=== PATIENT | female | born 1955 | race Caucasian/White ===

== ENCOUNTER → 2023-05-02 07:32 | Outpatient (REF) | payer OTHER, SELFPAY | LOC: EMG 07:32 | PROVIDERS: ATTENDING PHYSICIAN Student in an Organized Health Care Education/Training Program; FAMILY PHYSICIAN Family Medicine | DX: M79.671 Pain in right foot (principal); M25.571 Pain in right ankle and joints of right foot; R20.0 Anesthesia of skin | CPT/HCPCS: 95886; 95909 ==

== ENCOUNTER → 2023-05-19 11:11 | Outpatient (REF) | payer OTHER, SELFPAY | LOC: RAD 11:11 | PROVIDERS: ATTENDING PHYSICIAN Otolaryngology Facial Plastic Surgery; FAMILY PHYSICIAN Family Medicine | DX: J32.0 Chronic maxillary sinusitis (principal); J34.2 Deviated nasal septum; J30.1 Allergic rhinitis due to pollen | CPT/HCPCS: 70486 ==

== ENCOUNTER → 2023-07-23 11:56 | Outpatient (REF) | payer OTHER, SELFPAY ==
[2023-07-23 14:18] LABS: Urine Albumin Negative (Neg - Trace); Urine Bilirubin Negative (Negative); Urine Character Clear (Clear); Urine Color Yellow; Urine Glucose Negative (Negative); Urine Ketone Negative (Negative); Urine Leukocyte 1+ (Negative); Urine Nitrite Negative (Negative); Urine Occult Blood Negative (Negative); Urine Specific Gravity 1.015 (<1.030); Urine Urobilinogen Negative (Neg - 1+)
[2023-07-23 14:42] LABS: Urine Red Blood Cell 0-2 /HPF (0-2); Urine Squamous Cell 0-2 /LPF (Few)
== END ==
LOC: REG 11:56
PROVIDERS: ATTENDING PHYSICIAN Urology; FAMILY PHYSICIAN Family Medicine
DX: N39.0 Urinary tract infection, site not specified (principal)
CPT/HCPCS: 81003; 81015; 87077; 87086

== ENCOUNTER 2023-08-12 13:41 | Emergency (ER) | payer OTHER, SELFPAY ==
[2023-08-12 13:52] VITALS: BP 134/106
[2023-08-12 14:11] LABS: Hematocrit 38.4 % (37.0-47.0); Hemoglobin 12.8 g/dL (12.0-16.0); Mean Corp Hgb Conc. 33.3 g/dL (33.0-37.0); Mean Corpuscular Hgb 28.1 pg (27.0-31.0); Mean Corpuscular Volume 84.2 fL (81.0-99.0); Mean Platelet Volume 9.1 fL (7.4-10.4); Nucleated Red Blood Cells % 0 %; Platelet Count 236 10^3/uL (130-400); Red Blood Cell Count 4.56 10^6/uL (4.20-5.40); Red Cell Dist. Width 13.8 % (11.5-14.5); White Blood Cell Count 11.7 10^3/uL (4.8-10.8)
[2023-08-12 14:39] LABS: ALT (SGPT) 73 U/L (0-35); AST (SGOT) 71 U/L (14-36); Alkaline Phosphatase 84 U/L (38-126); Blood Urea Nitrogen 33 mg/dl (7-17); Calcium 9.5 mg/dl (8.4-10.2); Carbon Dioxide 21 mmol/L (22-30); Chloride 98 mmol/L (98-107); Glucose 154 mg/dl (70-99); Potassium 4.2 mmol/L (3.5-5.1); Sodium 132 mmol/L (135-145); Total Bilirubin 0.6 mg/dl (0.2-1.3); eGFR 45.07
[2023-08-12 14:48] LABS: Absolute Neutrophils -Man Diff 4.2 10^3/uL (1.4-6.5); Band Neutrophils 3 % (0-3); Lymphocytes 46 % (20-51); Segmented Neutrophils 33 % (42-75)
[2023-08-12 14:49] LABS: Atypical Lymphocytes 15 %; Eosinophils 1 % (0-6); Monocytes 2 % (2-9); Normal RBC Morphology Yes; Platelets Checked YES
[2023-08-12 14:50] LABS: Total Cells Counted 100
--- NOTE | 2023-08-12 16:04 | ED.GENMED ---
History of Present Illness
General
Chief Complaint: Urinary Symptoms
Source: patient
Exam Limitations: none
Time Seen by Provider: 08/12/23 16:03
Nursing documentation reviewed up to this point in time: agreed with
Travel History
Have you had any contact with someone who has COVID-19?: No
Do you have any symptoms of coronavirus? Fever > 100 degrees, chills, cough, shortness of breath, sore throat, loss of taste or smell, muscle aches, or headache?: No
History of Present Illness
History of Present Illness:
67 yo female with hx frequent UTIs, followed by Urology Dr. Kaufman, developed burning, frequency and dark urine 10 days ago, seen by 7 days ago and given Bactrim. At the time she had chills, fatigue, decreased appetite, and headache. Is on her
7th of 10 days on Bactrim DS BID. UTI symptoms improving, but still fatigued and didn't feel well so went back to yesterday and was told her Creatinine was 1.6 and recommended she come here for imaging of her kidneys. She also has felt 'not
really pain, more of a pressure' in her epigastric/chest area.
Denies n/v/d/c. Denies SOB.
Past History
Past History
ED Past Medical History: HTN, Hypercholesterolemia and Other
Review of Systems
Review of Systems
Allergies reviewed?: Yes
All Other Systems: ROS reviewed and negative except as documented in HPI and ROS
Constitutional: Reports fatigue and chills; Denies fever
Respiratory: Denies trouble breathing
Cardiac: Reports chest pain (chest heaviness intermittent past several days)
ABD/GI: Denies abdominal pain, nausea, vomiting or diarrhea
: Reports dark urine; Denies dysuria, flank pain, difficulty voiding or urgency
Musculoskeletal: Reports no symptoms
Skin: Reports no symptoms
Neurological: Reports no symptoms
Phy Exam
Physical Exam
Physical Exam:
GENERAL: No acute distress. A&Ox3.
CONSTITUTIONAL: Afebrile.
EYES: PERRL, conjunctivae normal
ENMT: moist mucus membranes, Pharynx nl
RESPIRATORY: Regular respirations, nonlabored, lungs clear.
CARDIOVASCULAR: Regular rate and rhythm, no murmurs, no rubs.
GI: Soft, nontender, normal BS
MUSCULOSKELETAL: Moves with ease. Well perfused. No edema
SKIN: Warm, dry, pink
PSYCH: Normal mood and affect. Well kept, interactive and appropriate
NEUROLOGIC: Awake, alert and oriented. No focal neurological deficits
Course
Orders/Labs/Results
Orders:
Orders
08/12/23 13:59
Electrocardiogram (*1) Urgent
Reason for Study: Chest Pain
08/12/23 14:04
Complete Blood Count/With Diff Urgent
Comprehensive Metabolic Panel Urgent
Manual Differential Urgent
08/12/23 16:03
Add On- LAB Urgent
Tests Added?: Troponin
0.9% Sodium Chloride 1000 ml [Nss] 1,000 ml IV BOLUS
08/12/23 16:17
Lisinopril [Zestril] 2.5 mg PO NOW STA
08/12/23 16:18
Hydrochlorothiazide [Oretic] 25 mg PO NOW STA
08/12/23 19:39
BMP [Basic Metabolic Panel] Urgent
Troponin I Urgent
Comment: COLLECT. NO GREEN TOP IN LAB
08/12/23 19:53
Urinalysis Reflex To Culture Urgent
Date Specimen was Collected: 08/12/23
Time Specimen was Collected: 18:43
Urine Microscopic Reflex Cult Urgent
Urine Culture Urgent
ANYA Source: U
Specimen Description:
Date Specimen was Collected: 08/12/23
Time Specimen was Collected: 18:43
Abnormal Lab Results
08/12/23 08/12/23 08/12/23
14:04 19:39 19:53
WBC 11.7 H 10^3/uL
(4.8-10.8)
Segmented Neutrophils 33 L %
(42-75)
Sodium 132 L mmol/L 131 L mmol/L
(135-145) (135-145)
Carbon Dioxide 21 L mmol/L
(22-30)
BUN 33 H mg/dl 33 H mg/dl
(7-17) (7-17)
Creatinine 1.3 H mg/dL 1.1 H mg/dL
(0.6-1.0) (0.6-1.0)
Glucose 154 H mg/dl 111 H mg/dl
(70-99) (70-99)
AST 71 H U/L
(14-36)
ALT 73 H U/L
(0-35)
Leukocyte Esterase Rfl 1+ A
(Negative)
08/12/23 14:04
08/12/23 19:39
Vital Signs
Initial and Last Documented VS:
Initial Vital Signs
Temp Pulse Resp BP Pulse Ox
98.3 F 138 20 134/106 99
08/12/23 13:52 08/12/23 13:52 08/12/23 13:52 08/12/23 13:52 08/12/23 13:52
Last Documented Vital Signs
Temp Pulse Resp BP Pulse Ox
98.3 F 69 20 108/74 97
08/12/23 13:52 08/12/23 20:41 08/12/23 13:52 08/12/23 20:41 08/12/23 20:41
MDM/Problems Addressed
Differential Diagnosis Includes:
Dehydration, UTI, acute kidney insufficiency
MDM/Problems Addressed:
67 yo female with hx frequent UTIs, followed by Urology Dr. Kaufman, developed burning, frequency and dark urine 10 days ago, seen by UC 7 days ago and given Bactrim. At the time she had chills, fatigue, decreased appetite, and headache. Is on her
7th of 10 days on Bactrim DS BID. UTI symptoms improving, but still fatigued and didn't feel well so went back to yesterday and was told her Creatinine was 1.6 and recommended she come here for imaging of her kidneys. She also has felt 'not
really pain, more of a pressure' in her epigastric/chest area.
Denies n/v/d/c. Denies SOB.
In triage EKG: sinus tach
Afebrile, NAD
BP 103/113, pt did not take her Lisinopril/HCTZ today, nor her Bactrim
BP rechecked by this examiner 102/68, initially ordered BP meds DC'd
4:20 p.m.
CBC: Mild leukocytosis at WBC 11.7, no clinically significant abnormality
CMP: BUN/creatinine 33/1.3, mild elevation of AST and ALT
Will rehydrate and recheck kidney fx.
Check Troponin for intermittent chest pressure
Recheck U/A since she states urine is still 'dark'
8:30 PM
After liter IV fluids, BUN and creatinine much improved 33/1.1.
Troponin within normal limits.
VSS
No indication at this time for imaging
Pt comfortable with plan. Given out pt slip for repeat CMP next week.
*Critical Care Note
Total Time (30-74mins, 75-104mins- exclusive of procedures): Not Applicable
ED Attending Note
-
Portions of this chart may have been created with voice recognition software.� Occasional wrong word or��sound alike� substitutions may have occurred due to the inherent limitations of voice recognition software.
Discharge Plan
Departure
Patient Disposition: Home (Routine Discharge)
Date of Disposition: 08/12/23
Time of Disposition: 20:29
Patient with high blood pressure during this ER visit?: No
Condition: Good
Discharge Problem:
Acute dehydration
Instructions: Dehydration, Adult ED
Prescriptions:
No Action
dicyclomine 20 mg tablet
20 mg PO QID PRN (Reason: abdominal pain) Qty: 10 0RF
Referrals:
Alessia So, DO [Family Provider] - Follow up in 5-7 days
Stand Alone Forms: Return to Work
Activity Restrictions/Additional Instructions:
As we discussed, you were dehydrated, your creatinine has improved to 1.1 after IV fluids
Call your family doctor tomorrow make an appointment for next week to have your blood chemistries rechecked.
Drink at least eight 8 ounce glasses of water/fluid daily between now and then
Your EKG and Troponin are normal.
Interventions
Interventions:
*Risk Screen - Suicide Last Done: 08/12/23 13:52
*General Assessment Last Done: 08/12/23 13:52
*Neglect/Abuse Screening Last Done: 08/12/23 13:52
*Nursing Disposition Last Done: 08/12/23 20:41
ED-Female Genitourinary Assessment Last Done: 08/12/23 19:29
Discharge Date and Time
Discharge Date/Time: 08/12/23 20:42
Print Language: ALBAN[place]
[2023-08-12] MEDS: NSS 1000 IV (18:11)
[2023-08-12 19:32] VITALS: BP 103/68
[2023-08-12 20:01] LABS: Urine Albumin Negative (Neg - Trace); Urine Bilirubin Negative (Negative); Urine Character Clear (Clear); Urine Color Yellow; Urine Glucose Negative (Negative); Urine Ketone Negative (Negative); Urine Leukocyte 1+ (Negative); Urine Nitrite Negative (Negative); Urine Occult Blood Negative (Negative); Urine Urobilinogen Negative (Neg - 1+)
[2023-08-12 20:05] LABS: Blood Urea Nitrogen 33 mg/dl (7-17); Calcium 8.9 mg/dl (8.4-10.2); Carbon Dioxide 22 mmol/L (22-30); Chloride 99 mmol/L (98-107); Glucose 111 mg/dl (70-99); Sodium 131 mmol/L (135-145); eGFR 55.07
[2023-08-12 20:15] LABS: Troponin I < 0.012 ng/ml
[2023-08-12 20:20] LABS: Urine White Cell 0-2 /HPF (0-5)
[2023-08-12 20:41] VITALS: BP 108/74
== END 2023-08-12 20:42 | disposition home or self-care (01) ==
LOC: EMR 13:41
PROVIDERS: Registered Nurse; EMERGENCY PHYSICIAN Student in an Organized Health Care Education/Training Program; FAMILY PHYSICIAN Family Medicine
DX: E86.0 Dehydration (principal); Z87.440 Personal history of urinary (tract) infections
CPT/HCPCS: 99284; 96360; 80048; 80053; 81003; 81015; 84484; 85025; 87086; 93005

== ENCOUNTER → 2023-09-22 07:43 | Outpatient (REF) | payer OTHER, SELFPAY ==
[2023-09-22 11:10] LABS: Urine Albumin Trace (Neg - Trace); Urine Bilirubin Negative (Negative); Urine Character Clear (Clear); Urine Color Yellow; Urine Glucose Negative (Negative); Urine Ketone Negative (Negative); Urine Leukocyte 1+ (Negative); Urine Nitrite Negative (Negative); Urine Occult Blood Negative (Negative); Urine Urobilinogen Negative (Neg - 1+)
[2023-09-22 11:18] LABS: Urine Bacteria Few (Negative); Urine Mucus Few; Urine Squamous Cell 26-30 /LPF (Few)
[2023-09-22 11:20] LABS: Urine Red Blood Cell 0-2 /HPF (0-2)
[2023-09-22 11:39] LABS: ALT (SGPT) 39 U/L (0-35); AST (SGOT) 47 U/L (14-36); Albumin 4.5 g/dl (3.5-5.0); Alkaline Phosphatase 69 U/L (38-126); Blood Urea Nitrogen 18 mg/dl (7-17); Carbon Dioxide 27 mmol/L (22-30); Chloride 100 mmol/L (98-107); Glucose 100 mg/dl (70-99); HDL Cholesterol 48 mg/dl; LDL Cholesterol, Calculated 69 mg/dl; Potassium 3.6 mmol/L (3.5-5.1); Sodium 139 mmol/L (135-145); Total Bilirubin 0.6 mg/dl (0.2-1.3); Total Cholesterol 167 mg/dl (50-199); Total Protein 7.1 g/dl (6.3-8.2); Triglyceride 254 mg/dl (10-149); Uric Acid 9.2 mg/dl (2.5-6.2); Very Low Density Lipoprotein 50 mg/dl (0-30); eGFR > 60.00
[2023-09-22 11:56] LABS: Vitamin D, 25-OH*** 38.9 ng/mL (30-80)
[2023-09-22 12:14] LABS: Glycohemoglobin (HgbA1c) 6.1 % (4.0-5.6)
[2023-09-22 13:08] LABS: Hematocrit 37.5 % (37.0-47.0); Hemoglobin 12.4 g/dL (12.0-16.0); Mean Corp Hgb Conc. 33.1 g/dL (33.0-37.0); Mean Corpuscular Hgb 28.7 pg (27.0-31.0); Mean Corpuscular Volume 86.8 fL (81.0-99.0); Mean Platelet Volume 9.3 fL (7.4-10.4); Platelet Count 191 10^3/uL (130-400); Red Blood Cell Count 4.32 10^6/uL (4.20-5.40); Red Cell Dist. Width 14.3 % (11.5-14.5); White Blood Cell Count 7.4 10^3/uL (4.8-10.8)
[2023-09-22 13:37] LABS: % Basophils 0.5 % (0-2); % Eosinophils 0.8 % (0-6); % Immature Granulocytes 0.3 % (0-0.5); % Lymphocytes 50.6 % (20.5-51.1); % Monocytes 5.2 % (1.7-9.3); % Neutrophils 42.6 % (42.2-75.2); Absolute Eosinophils 0.1 10^3/uL (0-0.7); Absolute Lymphocytes 3.7 10^3/uL (1.2-3.4); Absolute Monocytes 0.4 10^3/uL (0.1-0.6); Absolute Neutrophils 3.1 10^3/uL (1.4-6.5); Nucleated Red Blood Cells % 0 %
== END ==
LOC: REG 07:43
PROVIDERS: ATTENDING PHYSICIAN Family Medicine
DX: M1A.0711 Idiopathic chronic gout, right ankle and foot, with tophus (tophi) (principal); N30.00 Acute cystitis without hematuria; R73.03 Prediabetes; E55.9 Vitamin D deficiency, unspecified; M25.571 Pain in right ankle and joints of right foot; E78.2 Mixed hyperlipidemia; Z83.49 Family history of other endocrine, nutritional and metabolic diseases
CPT/HCPCS: 36415; 80053; 80061; 81003; 81015; 82306; 83036; 84443; 84550; 85025

== ENCOUNTER → 2024-01-03 07:15 | Outpatient (REF) | payer OTHER, SELFPAY ==
[2024-01-03 09:58] LABS: HDL Cholesterol 58 mg/dl; LDL Cholesterol, Calculated 111 mg/dl; Total Cholesterol 212 mg/dl (50-199); Triglyceride 217 mg/dl (10-149); Very Low Density Lipoprotein 43 mg/dl (0-30)
[2024-01-03 10:13] LABS: Vitamin D, 25-OH*** 39.4 ng/mL (30-80)
[2024-01-03 11:27] LABS: Glycohemoglobin (HgbA1c) 6.3 % (4.0-5.6)
== END ==
LOC: REG 07:15
PROVIDERS: ATTENDING PHYSICIAN Family Medicine
DX: E78.2 Mixed hyperlipidemia (principal); R73.03 Prediabetes; E55.9 Vitamin D deficiency, unspecified
CPT/HCPCS: 36415; 80061; 82306; 83036

== ENCOUNTER → 2024-06-19 07:44 | Outpatient (REF) | payer OTHER, SELFPAY | LOC: WDC 07:44 | PROVIDERS: ATTENDING PHYSICIAN Family Medicine | DX: Z12.31 Encounter for screening mammogram for malignant neoplasm of breast (principal) | CPT/HCPCS: 77063; 77067 ==

== ENCOUNTER → 2024-08-19 07:42 | Outpatient (REF) | payer OTHER, SELFPAY ==
[2024-08-19 08:33] LABS: % Basophils 1.2 % (0-2); % Eosinophils 1.7 % (0-6); % Immature Granulocytes 0.3 % (0-0.5); % Lymphocytes 35.8 % (20.5-51.1); % Monocytes 7.1 % (1.7-9.3); % Neutrophils 53.9 % (42.2-75.2); Absolute Basophils 0.1 10^3/uL (0-0.2); Absolute Eosinophils 0.1 10^3/uL (0-0.7); Absolute Lymphocytes 2.5 10^3/uL (1.2-3.4); Absolute Monocytes 0.5 10^3/uL (0.1-0.6); Absolute Neutrophils 3.7 10^3/uL (1.4-6.5); Hematocrit 40.3 % (37.0-47.0); Hemoglobin 13.5 g/dL (12.0-16.0); Mean Corp Hgb Conc. 33.5 g/dL (33.0-37.0); Mean Corpuscular Hgb 29.8 pg (27.0-31.0); Mean Platelet Volume 9.2 fL (7.4-10.4); Nucleated Red Blood Cells % 0 %; Platelet Count 219 10^3/uL (130-400); Red Blood Cell Count 4.53 10^6/uL (4.20-5.40); Red Cell Dist. Width 13.4 % (11.5-14.5); White Blood Cell Count 6.9 10^3/uL (4.8-10.8)
[2024-08-19 09:15] LABS: ALT (SGPT) 29 U/L (0-35); AST (SGOT) 25 U/L (14-36); Albumin 4.9 g/dl (3.5-5.0); Alkaline Phosphatase 65 U/L (38-126); Blood Urea Nitrogen 24 mg/dl (7-17); Calcium 10.6 mg/dl (8.4-10.2); Carbon Dioxide 30 mmol/L (22-30); Chloride 100 mmol/L (98-107); Glucose 147 mg/dl (70-99); HDL Cholesterol 62 mg/dl; LDL Cholesterol, Calculated 123 mg/dl; Sodium 140 mmol/L (135-145); Total Bilirubin 0.8 mg/dl (0.2-1.3); Total Cholesterol 235 mg/dl (50-199); Total Protein 7.7 g/dl (6.3-8.2); Triglyceride 251 mg/dl (10-149); Very Low Density Lipoprotein 50 mg/dl (0-30); eGFR > 60.00
[2024-08-19 09:22] LABS: Glycohemoglobin (HgbA1c) 6.4 % (4.0-5.6)
[2024-08-19 09:25] LABS: Vitamin D, 25-OH*** 32.5 ng/mL (30-80)
[2024-08-19 09:38] LABS: TSH 0.58 uIU/ml (0.47-4.68)
== END ==
LOC: REG 07:42
PROVIDERS: ATTENDING PHYSICIAN Family Medicine
DX: E55.9 Vitamin D deficiency, unspecified (principal); I10 Essential (primary) hypertension; Z00.00 Encounter for general adult medical examination without abnormal findings; E66.09 Other obesity due to excess calories; M1A.0711 Idiopathic chronic gout, right ankle and foot, with tophus (tophi); E78.2 Mixed hyperlipidemia; H52.13 Myopia, bilateral; F33.1 Major depressive disorder, recurrent, moderate; R73.03 Prediabetes; H52.4 Presbyopia; K21.9 Gastro-esophageal reflux disease without esophagitis
CPT/HCPCS: 36415; 80053; 80061; 82306; 83036; 84443; 85025

== ENCOUNTER → 2024-08-23 12:01 | Outpatient (REF) | payer OTHER, SELFPAY | LOC: RAD 12:01 | PROVIDERS: ATTENDING PHYSICIAN Family Medicine | DX: F33.1 Major depressive disorder, recurrent, moderate (principal); Z00.00 Encounter for general adult medical examination without abnormal findings; E66.09 Other obesity due to excess calories; I10 Essential (primary) hypertension; Z68.31 Body mass index [BMI] 31.0-31.9, adult; G47.33 Obstructive sleep apnea (adult) (pediatric); E78.2 Mixed hyperlipidemia | CPT/HCPCS: 76536 ==

== ENCOUNTER → 2024-09-30 09:24 | Outpatient (REF) | payer OTHER, SELFPAY | LOC: PAVMRI 09:24 | PROVIDERS: ATTENDING PHYSICIAN Physician Assistant Surgical; REFERRING PHYSICIAN Student in an Organized Health Care Education/Training Program | DX: M25.522 Pain in left elbow (principal); M25.532 Pain in left wrist | CPT/HCPCS: 73221 ==

== ENCOUNTER → 2025-01-19 10:14 | Outpatient (REF) | payer OTHER, SELFPAY | LOC: RAD 10:14 | PROVIDERS: ATTENDING PHYSICIAN Internal Medicine Gastroenterology; FAMILY PHYSICIAN Family Medicine | DX: R19.4 Change in bowel habit (principal) | CPT/HCPCS: 36415; 74018; 82784; 83516; 84443; 86231 ==